=== PATIENT | male | born 1995 | race Caucasian/White ===

== ENCOUNTER → 2020-01-26 | Outpatient (CLI) | payer OTHER ==
[~2020-01-26] MED LIST: BENZ200C70 PO; MUCI600T31 PO
--- NOTE | 2020-02-25 10:04 | REP ---
RENAL ULTRASOUND WITH COLOR DOPPLER EVALUATION: HISTORY: Chronic idiopathic hypertension. TECHNIQUE: Real time, rosario scale and color Doppler evaluation using curved array transducer. FINDINGS: The bilateral kidneys are normal in contour, size, echogenicity and reniform shape without hydronephrosis, nephrolithiasis, cystic or renal mass lesion. No peripheral neuropathy fluid collections are identified. The right kidney measures 11.0 x 5.5 x 4.3 cm. The left kidney measures 12.2 x 5.9 x 5.2 cm. Color Doppler evaluation demonstrates relatively normal renal arterial findings without evidence for renal arterial stenosis. RIGHT KIDNEY: Peak renal arterial velocity: 145 cm/s Renal/aortic ratio: 1.40 Resistive index: 0.62-0.64 Acceleration times: 0.042-0.045 LEFT KIDNEY: Peak renal arterial velocity: 122 cm/s Renal/aortic ratio: 1.20 Resistive index: 0.61-0.64 Acceleration times: 0.033-0.047 IMPRESSION: 1. Normal appearance to the bilateral kidneys. 2. Normal Doppler interrogation without evidence for renal arterial stenosis. [facility]
== END ==
LOC: M RAD 06:31
PROVIDERS: ATTEND Physician Assistant
DX: I10 Essential (primary) hypertension (principal)